=== PATIENT | male | born 1985 | race Caucasian/White ===

== ENCOUNTER 2019-07-29 23:13 | Emergency (ER) | payer SELFPAY ==
[2019-07-29 23:25] VITALS: BP 163/102; PULSE 115
--- NOTE | 2019-07-30 00:16 | EDM.PDOC ---
ED HPI GENERAL MEDICAL PROBLEM - General Chief Complaint: Respiratory Problem Stated Complaint: chest pressure cough fever Time Seen by Provider: 07/29/19 23:39 Source of Information: Reports: Patient, RN Notes Reviewed - History of Present Illness INITIAL COMMENTS - FREE TEXT/NARRATIVE: 34-year-old male started with cough, nasal and sinus congestion about 4 to 5 days ago. Has been having fever and chills off and on for the past 2 or 3 days. Had headache, muscle aching low energy. He does work out in the oil field. He did not get a flu shot this year. Cough is been mainly dry and nonproductive. Chest Pain Score (Numeric/FACES): 7 - Related Data Allergies Allergy/AdvReac Type Severity Reaction Status Date / Time No Known Allergies Allergy Verified 09/16/13 17:03 Home Meds: Home Meds Dextroamphetamine/Amphetamine [Adderall 10 mg Tablet] 50 mg PO DAILY 07/29/19 [ History] buPROPion [Wellbutrin SR] 150 mg PO DAILY 07/29/19 [History] Past Medical History Respiratory History: Reports: Asthma, Bronchitis, Recurrent Musculoskeletal History: Reports: Fracture - Past Surgical History GI Surgical History: Reports: Cholecystectomy Musculoskeletal Surgical History: Reports: ORIF Social & Family History - Tobacco Use Smoking Status *Q: Current Every Day Smoker Years of Tobacco use: 10 Packs/Tins Daily: 1 - Alcohol Use Days Per Week of Alcohol Use: 2 Number of Drinks Per Day: 2 Total Drinks Per Week: 4 - Recreational Drug Use Recreational Drug Use: No ED ROS GENERAL - Review of Systems Review Of Systems: See Below Constitutional: Denies: Fever, Chills HEENT: Reports: Rhinitis. Denies: Sinus Problem, Throat Pain Respiratory: Reports: Cough, Sputum. Denies: Shortness of Breath, Wheezing Cardiovascular: Reports: Chest Pain (Cannot) GI/Abdominal: Denies: Abdominal Pain, Nausea, Vomiting Musculoskeletal: Reports: Other Skin: Denies: Rash (Lysed achiness) Neurological: Reports: Headache ED EXAM, GENERAL - Physical Exam Exam: See Below General Appearance: Alert, No Apparent Distress Eye Exam: Bilateral Eye: PERRL Throat/Mouth: Normal Inspection, Normal Oropharynx Neck: Supple Respiratory/Chest: No Respiratory Distress, Lungs Clear, Normal Breath Sounds. No: Rhonchi, Wheezing Cardiovascular: Tachycardia GI/Abdominal: Non-Tender Extremities: Normal Inspection, Normal Range of Motion Neurological: Alert, Oriented, No Motor/Sensory Deficits Skin Exam: Warm, Dry, Normal Color Course - Vital Signs Last Recorded V/S: Last Vital Signs Temp 98.3 F 07/29/19 23:22 Pulse 115 H 07/29/19 23:22 Resp 20 07/29/19 23:22 BP 163/102 H 07/29/19 23:22 Pulse Ox 99 07/29/19 23:22 - Orders/Labs/Meds Orders: Active Orders 24 hr Category Date Time Status Chest 1V Frontal [CR] Stat Exams 07/29/19 23:48 Taken - Re-Assessments/Exams Free Text/Narrative Re-Assessment/Exam: 07/30/19 00:24 Chest x-ray normal, he does have all the symptoms of influenza so will collect that. Symptoms started 4 to 5 days ago. Not a candidate for Tamiflu. Discharge instructions as documented. Departure - Departure Time of Disposition: 00:15 Disposition: Home, Self-Care 01 Condition: Fair Clinical Impression: Influenza - Discharge Information Instructions: Influenza, Adult, [id number] Referrals: PCP,None [Primary Care Provider] - Forms: ED Department Discharge Additional Instructions: Rest. Vaporizer or steam as needed. Drink plenty of water to maintain hydration. Follow up clinic if not much better within 3 to 4 days as expected. Return to ED as needed, especially if symptoms worsening in any way. Sepsis Event Note - Evaluation Sepsis Screening Result: No Definite Risk - Focused Exam Vital Signs: Vital Signs Temp Pulse Resp BP Pulse Ox 07/29/19 23:22 98.3 F 115 H 20 163/102 H 99 Date Exam was Performed: 07/30/19 Time Exam was Performed: 00:22 - My Orders Last 24 Hours: My Active Orders 07/29/19 23:48 Chest 1V Frontal [CR] Stat - Assessment/Plan Last 24 Hours: My Active Orders 07/29/19 23:48 Chest 1V Frontal [CR] Stat
--- NOTE | 2019-07-30 06:52 | CR ---
Chest: Portable view of the chest was obtained. Comparison: No prior chest imaging is available. Heart size and mediastinum are normal. Increased density is noted within the right upper chest. Lungs otherwise are clear. Bony structures are unremarkable. Impression: 1. Increased density within the right upper chest. This most likely represents pneumonia given the patient's available clinical history. Diagnostic code #3 This report was dictated in MDT
== END 2019-07-30 00:20 | disposition home or self-care (01) ==
LOC: JD.ED 23:13
DX: J11.1 Influenza due to unidentified influenza virus with other respiratory manifestations (principal); F17.210 Nicotine dependence, cigarettes, uncomplicated; Z79.899 Other long term (current) drug therapy
CPT/HCPCS: 71045; 71045-26; 99283-25